=== PATIENT | female | born 1945 | race African-American/Black ===

== ENCOUNTER 2021-08-29 19:26 | Emergency (ER) | payer MEDICARE, MEDICAID ==
[~2021-08-29] VITALS: Ht 167.6 cm; Wt 96.0 kg
[~2021-08-29 19:26] MED LIST: BACL-141 MT; T3 PO
[2021-08-29] MEDS ORDERED: METHOCARBAMOL 500MG TABLET PO ONE (20:30)
[2021-08-29] MEDS ORDERED: KETOROLAC 60MG/2ML VIAL IM ONE (20:30)
[2021-08-30 00:14] LABS: CLARITY URINE CLOUDY (CLEAR); COLOR URINE YELLOW (YELLOW); KETONES URINE NEGATIVE (NEGATIVE); LEUKOCYTE ESTERASE URINE 3+ (NEGATIVE); NITRITE URINE POSITIVE (NEGATIVE); OCCULT BLOOD URINE 2+ (NEGATIVE); PROTEIN URINE TRACE (NEGATIVE); SPECIFIC GRAVITY URINE 1.013 (1.005-1.030); UROBILINOGEN URINE 0.2 E.U./dL (0.2-1.0)
[2021-08-30] MEDS ORDERED: CEPH500C2 MT (00:48)
[2021-08-30] MEDS ORDERED: METH-653 MT (00:51)
[2021-08-30 01:00] VITALS: BP 171/77
== END 2021-08-30 01:05 | disposition home or self-care (01) ==
LOC: ER 19:26
DX: N39.0 Urinary tract infection, site not specified (principal); M54.9 Dorsalgia, unspecified; F03.90 Unspecified dementia, unspecified severity, without behavioral disturbance, psychotic disturbance, mood disturbance, and anxiety; I10 Essential (primary) hypertension; Z98.51 Tubal ligation status; Z98.890 Other specified postprocedural states
CPT/HCPCS: 81003; 87077; 87086; 87186; 96372; 99283; J1885

== ENCOUNTER 2021-09-10 07:11 | Emergency (ER) | payer MEDICARE, MEDICAID ==
[~2021-09-10] VITALS: Ht 167.6 cm; Wt 91.0 kg
[~2021-09-10 07:11] MED LIST changes: +CEPH500C2 MT; +METH-653 MT
[2021-09-10] MEDS ORDERED: METHOCARBAMOL 750MG TABLET PO SCH (08:30)
[2021-09-10] MEDS ORDERED: KETOROLAC 30MG/ML VIAL IV ONE (08:30)
[2021-09-10] MEDS ORDERED: ASPIRIN 325MG EC TABLET PO ONE (08:30)
[2021-09-10 09:00] LABS: BASOPHILS % 0.6 % (0.0-2.0); EOSINOPHILS % 0.3 % (0.0-5.0); HEMOGLOBIN. 12.8 g/dL (12.0-16.0); LYMPHOCYTES % 17.6 % (20.0-50.0); MEAN CORPUSCULAR HEMOGLOBIN 28.5 pg (28.0-32.0); MEAN PLATELET VOLUME 10.4 fl (7.4-10.4); MONOCYTES % 13.2 % (2.0-8.0); NEUTROPHILS % 68.3 % (40.0-76.0); PLATELET 204 x1000/uL (130-400); RED BLOOD CELL COUNT 4.48 mill/uL (4.2-5.4); RED CELL DISTRIBUTION WIDTH 14.1 % (11.6-14.6)
[2021-09-10 09:05] LABS: CHLORIDE 105 mEq/L (98-107)
[2021-09-10] MEDS ORDERED: IBUP-2028 MT (11:41)
[2021-09-10] MEDS ORDERED: METH-653 MT (11:41)
[2021-09-10 12:10] VITALS: BP 145/86
== END 2021-09-10 12:28 | disposition home or self-care (01) ==
LOC: ER 07:20
DX: R07.89 Other chest pain (principal); M54.9 Dorsalgia, unspecified; F03.90 Unspecified dementia, unspecified severity, without behavioral disturbance, psychotic disturbance, mood disturbance, and anxiety; I10 Essential (primary) hypertension; Z98.51 Tubal ligation status; Z79.899 Other long term (current) drug therapy
CPT/HCPCS: 36415; 71045; 80053; 83880; 84484; 85025; 93005; 96374; 99285; J1885

== ENCOUNTER 2021-09-19 21:25 | Emergency (ER) | payer MEDICARE, MEDICAID ==
[~2021-09-19] VITALS: Ht 167.6 cm; Wt 80.4 kg
[~2021-09-19 21:25] MED LIST changes: +IBUP-2028 MT
[2021-09-19 23:14] LABS: BASOPHILS % 0.4 % (0.0-2.0); EOSINOPHILS % 1.6 % (0.0-5.0); HEMATOCRIT. 38.3 % (36.0-48.0); HEMOGLOBIN. 12.4 g/dL (12.0-16.0); LYMPHOCYTES % 14.8 % (20.0-50.0); MEAN CORPUSCULAR HEMOGLOBIN 28.9 pg (28.0-32.0); MEAN PLATELET VOLUME 9.7 fl (7.4-10.4); MONOCYTES % 11.6 % (2.0-8.0); NEUTROPHILS % 71.6 % (40.0-76.0); PLATELET 214 x1000/uL (130-400); RED CELL DISTRIBUTION WIDTH 14.8 % (11.6-14.6)
[2021-09-19 23:25] LABS: CHLORIDE 106 mEq/L (98-107)
[2021-09-20] MEDS ORDERED: KETOROLAC 30MG/ML VIAL IV STA (00:02)
[2021-09-20] MEDS ORDERED: KETOROLAC 30MG/ML VIAL IV NR (01:30)
[2021-09-20 02:37] LABS: CLARITY URINE CLEAR (CLEAR); COLOR URINE YELLOW (YELLOW); KETONES URINE NEGATIVE (NEGATIVE); LEUKOCYTE ESTERASE URINE 3+ (NEGATIVE); NITRITE URINE NEGATIVE (NEGATIVE); OCCULT BLOOD URINE TRACE (NEGATIVE); PROTEIN URINE NEGATIVE (NEGATIVE); SPECIFIC GRAVITY URINE 1.015 (1.005-1.030); UROBILINOGEN URINE 0.2 E.U./dL (0.2-1.0)
[2021-09-20 06:40] VITALS: BP 135/65
== END 2021-09-20 06:54 | disposition home or self-care (01) ==
LOC: ER 21:25
DX: M54.9 Dorsalgia, unspecified (principal); M19.90 Unspecified osteoarthritis, unspecified site; I10 Essential (primary) hypertension; F03.90 Unspecified dementia, unspecified severity, without behavioral disturbance, psychotic disturbance, mood disturbance, and anxiety; Z98.51 Tubal ligation status; Z98.890 Other specified postprocedural states
CPT/HCPCS: 36415; 71045; 72125; 72128; 72131; 80053; 81003; 83690; 83880; 84484; 85025; 87086; 93005; 96374; 99285; J1885

== ENCOUNTER 2021-09-25 04:05 | Emergency (ER) | payer MEDICARE, MEDICAID ==
[~2021-09-25] VITALS: Ht 167.6 cm; Wt 78.8 kg
[2021-09-25] MEDS ORDERED: FAMO-135 MT (04:10)
[2021-09-25] MEDS ORDERED: T3 PO (04:23)
[2021-09-25] MEDS ORDERED: HYDROCODONE/ACETAMINOPHEN 5/325MG TABLET PO ONE (04:30)
[2021-09-25 04:46] VITALS: BP 173/79
== END 2021-09-25 05:36 | disposition home or self-care (01) ==
LOC: ER 04:16
DX: M54.50 Low back pain, unspecified (principal); G89.29 Other chronic pain; I10 Essential (primary) hypertension; F03.90 Unspecified dementia, unspecified severity, without behavioral disturbance, psychotic disturbance, mood disturbance, and anxiety; Z98.890 Other specified postprocedural states; Z98.51 Tubal ligation status
CPT/HCPCS: 99283

== ENCOUNTER 2021-10-03 00:47 | Emergency (ER) | payer MEDICARE, MEDICAID ==
[~2021-10-03] VITALS: Ht 167.6 cm; Wt 80.0 kg
[2021-10-03] MEDS ORDERED: CYCLOBENZAPRINE 10MG TABLET PO PRN (04:00)
[2021-10-03 04:55] LABS: BASOPHILS % 0.5 % (0.0-2.0); EOSINOPHILS % 1.3 % (0.0-5.0); HEMATOCRIT. 36.3 % (36.0-48.0); HEMOGLOBIN. 11.8 g/dL (12.0-16.0); LYMPHOCYTES % 23.1 % (20.0-50.0); MEAN CORPUSCULAR HEMOGLOBIN 29.1 pg (28.0-32.0); MEAN CORPUSCULAR VOLUME 89.3 fL (81.0-99.0); MEAN PLATELET VOLUME 10.2 fl (7.4-10.4); MONOCYTES % 11.2 % (2.0-8.0); NEUTROPHILS % 63.9 % (40.0-76.0); PLATELET 190 x1000/uL (130-400); RED BLOOD CELL COUNT 4.06 mill/uL (4.2-5.4); RED CELL DISTRIBUTION WIDTH 14.6 % (11.6-14.6)
[2021-10-03 05:02] LABS: CHLORIDE 107 mEq/L (98-107)
[2021-10-03 12:32] LABS: CLARITY URINE CLEAR (CLEAR); COLOR URINE YELLOW (YELLOW); KETONES URINE NEGATIVE (NEGATIVE); LEUKOCYTE ESTERASE URINE NEGATIVE (NEGATIVE); NITRITE URINE NEGATIVE (NEGATIVE); OCCULT BLOOD URINE NEGATIVE (NEGATIVE); PROTEIN URINE NEGATIVE (NEGATIVE); SPECIFIC GRAVITY URINE 1.014 (1.005-1.030); UROBILINOGEN URINE 0.2 E.U./dL (0.2-1.0)
[2021-10-03 15:00] VITALS: BP 147/74
== END 2021-10-03 15:52 | disposition home or self-care (01) ==
LOC: ER 00:47
DX: S39.012A Strain of muscle, fascia and tendon of lower back, initial encounter (principal); I10 Essential (primary) hypertension; Z98.51 Tubal ligation status; X58.XXXA Exposure to other specified factors, initial encounter; Y93.89 Activity, other specified; Y92.89 Other specified places as the place of occurrence of the external cause; Y99.8 Other external cause status
CPT/HCPCS: 36415; 72131; 80053; 81003; 85025; 99284

== ENCOUNTER 2021-11-25 10:00 | Emergency (ER) | payer MEDICARE, MEDICAID ==
[~2021-11-25] VITALS: Ht 167.6 cm; Wt 66.0 kg
[2021-11-25] MEDS ORDERED: ACETAMINOPHEN WITH CODEINE 300/30MG TABLET PO STA (11:25)
[2021-11-25] MEDS ORDERED: IBUPROFEN 600MG TABLET PO STA (11:25)
[2021-11-25 12:56] LABS: CLARITY URINE CLOUDY (CLEAR); COLOR URINE YELLOW (YELLOW); KETONES URINE NEGATIVE (NEGATIVE); LEUKOCYTE ESTERASE URINE 2+ (NEGATIVE); NITRITE URINE NEGATIVE (NEGATIVE); OCCULT BLOOD URINE NEGATIVE (NEGATIVE); PROTEIN URINE NEGATIVE (NEGATIVE); SPECIFIC GRAVITY URINE 1.022 (1.005-1.030); UROBILINOGEN URINE 0.2 E.U./dL (0.2-1.0)
[2021-11-25] MEDS ORDERED: NITR-87 PO (13:11)
[2021-11-25] MEDS ORDERED: T3 PO (13:11)
[2021-11-25] MEDS ORDERED: DICL100G31 TP (13:11)
[2021-11-25 13:36] VITALS: BP 126/78
== END 2021-11-25 13:38 | disposition home or self-care (01) ==
LOC: ER 10:12
DX: M54.9 Dorsalgia, unspecified (principal); N39.0 Urinary tract infection, site not specified; M19.90 Unspecified osteoarthritis, unspecified site; E78.00 Pure hypercholesterolemia, unspecified; I11.9 Hypertensive heart disease without heart failure; F17.210 Nicotine dependence, cigarettes, uncomplicated; Z88.8 Allergy status to other drugs, medicaments and biological substances; Z98.62 Peripheral vascular angioplasty status; Z90.710 Acquired absence of both cervix and uterus; Z98.890 Other specified postprocedural states
CPT/HCPCS: 81003; 99283

== ENCOUNTER 2021-12-16 14:28 | Inpatient (IN) | payer MEDICARE, MEDICAID ==
[~2021-12-16] VITALS: Ht 167.6 cm; Wt 86.2 kg
[~2021-12-16 14:28] MED LIST changes: +DICL100G31 TP; +NITR-87 PO
[2021-12-16] MEDS ORDERED: ASPIRIN 81MG TABLET PO ONE (14:45)
[2021-12-16] MEDS ORDERED: ACETAMINOPHEN 325MG TABLET PO ONE (14:45)
[2021-12-16 16:03] LABS: BASOPHILS % 0.1 % (0.0-2.0); EOSINOPHILS % 0.2 % (0.0-5.0); HEMATOCRIT. 38.5 % (36.0-48.0); HEMOGLOBIN. 12.4 g/dL (12.0-16.0); LYMPHOCYTES % 7.3 % (20.0-50.0); MEAN CORPUSCULAR VOLUME 90.3 fL (81.0-99.0); MEAN PLATELET VOLUME 9.8 fl (7.4-10.4); MONOCYTES % 8.3 % (2.0-8.0); NEUTROPHILS % 84.1 % (40.0-76.0); PLATELET 204 x1000/uL (130-400); RED BLOOD CELL COUNT 4.27 mill/uL (4.2-5.4); RED CELL DISTRIBUTION WIDTH 14.6 % (11.6-14.6)
[2021-12-16 16:11] LABS: CHLORIDE 104 mEq/L (98-107)
[2021-12-16 16:12] LABS: PROTHROMBIN TIME 10.9 sec (9.6-11.0)
[2021-12-16] MEDS ORDERED: MORPHINE SULFATE 4 MG/ML CPJ (NOT FOR IM USE) IV ONE (17:00)
[2021-12-16] MEDS ORDERED: HYDRALAZINE 20MG/ML VIAL IV ONE (17:15)
[2021-12-16] MEDS ORDERED: DEXTROSE 50% WATER 50ML SYRINGE IV PRN (20:45)
[2021-12-16 20:55] VITALS: BP 173/72
[2021-12-16] MEDS: INSULIN LISPRO 100 UNITS/ML SUBCUT SCH (21:00)
[2021-12-16] MEDS ORDERED: ENOXAPARIN 80MG/0.8ML SYR SUBCUT SCH (21:00)
[2021-12-16] MEDS: BLOOD SUGAR DIAGNOSTIC STRIP TEST SCH (21:48)
[2021-12-16] MEDS: METOPROLOL TARTRATE 25MG TABLET PO SCH (21:51)
[2021-12-16] MEDS ORDERED: HYDRALAZINE HCL 25MG TABLET PO SCH (22:00)
[2021-12-17] VITALS (8 sets, daily range): BP systolic 105–166; BP diastolic 45–78
[2021-12-17] MEDS ORDERED: AMLODIPINE 10MG TABLET PO NR (01:00)
[2021-12-17 06:13] LABS: CHLORIDE 104 mEq/L (98-107)
[2021-12-17 06:27] LABS: BASOPHILS % 0.2 % (0.0-2.0); EOSINOPHILS % 0.3 % (0.0-5.0); HEMATOCRIT. 35.7 % (36.0-48.0); HEMOGLOBIN. 11.8 g/dL (12.0-16.0); MEAN CORPUSCULAR HEMOGLOBIN 29.1 pg (28.0-32.0); MEAN CORPUSCULAR VOLUME 88.3 fL (81.0-99.0); MEAN PLATELET VOLUME 10.4 fl (7.4-10.4); MONOCYTES % 13.9 % (2.0-8.0); NEUTROPHILS % 68.6 % (40.0-76.0); PLATELET 195 x1000/uL (130-400); RED BLOOD CELL COUNT 4.04 mill/uL (4.2-5.4); RED CELL DISTRIBUTION WIDTH 14.3 % (11.6-14.6)
[2021-12-17] MEDS: BLOOD SUGAR DIAGNOSTIC STRIP TEST SCH ×4 (06:28→20:34)
[2021-12-17 06:39] LABS: CREATINE KINASE 1263 IU/L (26-192); CREATINE KINASE MB FRACTION 131.8 ng/mL (0.5-3.6); HDL CHOLESTEROL 70 mg/dL (40-59); LDL CHOLESTEROL 102 mg/dL (5-100)
[2021-12-17] MEDS ORDERED: HEPARIN 5000 UNITS/ML VIAL IV SCH (07:15)
[2021-12-17] MEDS ORDERED: HEPARIN 5000 UNITS/ML VIAL IV PRN ×2 (07:15)
[2021-12-17] MEDS ORDERED: HEPARIN 25,000 UNITS PREMIX 250 ML IV PRN (07:15)
[2021-12-17] MEDS: INSULIN LISPRO 100 UNITS/ML SUBCUT SCH ×4 (07:50→20:38)
[2021-12-17] MEDS ORDERED: BENAZEPRIL 5MG TABLET PO SCH (09:00)
[2021-12-17] MEDS: METOPROLOL TARTRATE 25MG TABLET PO SCH ×2 (10:01→20:33)
[2021-12-17] MEDS: AMLODIPINE 10MG TABLET PO SCH (10:02)
[2021-12-17] MEDS: GABAPENTIN 300MG CAPSULE PO SCH ×2 (10:02→17:55)
[2021-12-17 10:53] LABS: INR 1.1; PARTIAL THROMBOPLASTIN TIME 32.2 sec (23.4-31.0); PROTHROMBIN TIME 11.3 sec (9.6-11.0)
[2021-12-17] MEDS ORDERED: HEPARIN 1000 UNITS/ML 10ML ONE (11:08)
[2021-12-17] MEDS ORDERED: FENTANYL CITRATE/PF 50MCG/ML 2ML VIAL ONE (11:08)
[2021-12-17] MEDS ORDERED: MIDAZOLAM HCL 2 MG/2 ML VIAL ONE (11:08)
[2021-12-17] MEDS ORDERED: LIDOCAINE HCL 1% 10 MG/ML 10ML VIAL ONE (11:09)
[2021-12-17] MEDS ORDERED: IODIXANOL 320MG/ML 100 ML BOTTLE IV ONE (11:09)
[2021-12-17] MEDS ORDERED: HEPARIN BOLUS PRN aPTT <30 IV (11:15)
[2021-12-17] MEDS ORDERED: HEPARIN BOLUS PRN aPTT 30-44 IV (11:15)
[2021-12-17] MEDS ORDERED: HEPARIN 25,000 UNITS PREMIX 250 ML IV SCH (11:15)
[2021-12-17] MEDS ORDERED: CLOPIDOGREL 75MG TABLET ONE (12:42)
[2021-12-17] MEDS ORDERED: ASPIRIN 325MG TABLET ONE (12:42)
[2021-12-17] MEDS ORDERED: ATROPINE SULFATE 1MG/10ML SYR IV PRN (12:45)
[2021-12-17] MEDS ORDERED: LORAZEPAM 0.5MG TABLET PO NR (19:45)
[2021-12-17] MEDS ORDERED: ATORVASTATIN CALCIUM 40MG TABLET PO SCH (21:00)
[2021-12-17] MEDS ORDERED: ATORVASTATIN CALCIUM 20MG TABLET PO SCH (21:00)
[2021-12-18] VITALS: BP 137/81
[2021-12-18 02:00] VITALS: BP 136/59
[2021-12-18 04:00] VITALS: BP 119/49
[2021-12-18] MEDS: BLOOD SUGAR DIAGNOSTIC STRIP TEST SCH (07:50)
[2021-12-18 08:00] VITALS: BP 118/59
[2021-12-18] MEDS: INSULIN LISPRO 100 UNITS/ML SUBCUT SCH (08:00)
[2021-12-18] MEDS: AMLODIPINE 10MG TABLET PO SCH (09:00)
[2021-12-18] MEDS ORDERED: CLOPIDOGREL 75MG TABLET PO SCH (09:00)
[2021-12-18] MEDS ORDERED: ASPIRIN 81MG TABLET PO SCH (09:00)
[2021-12-18] MEDS: METOPROLOL TARTRATE 25MG TABLET PO SCH (09:00)
[2021-12-18] MEDS: GABAPENTIN 300MG CAPSULE PO SCH (09:23)
[2021-12-18] MEDS ORDERED: ASPI-1160 PO (11:37)
[2021-12-18] MEDS ORDERED: GABA-532 PO (11:37)
[2021-12-18] MEDS ORDERED: CLOP75TA15 PO (11:37)
[2021-12-18] MEDS ORDERED: LIP40 PO (11:37)
[2021-12-18] MEDS ORDERED: METO25TA6 PO (11:37)
[2021-12-18] MEDS ORDERED: AMLO10TA80 PO (11:37)
[2021-12-18 12:00] VITALS: BP 123/61
[2021-12-18 12:39] VITALS: BP 123/61
== END 2021-12-18 13:30 | disposition home or self-care (01) | DRG 247 ==
LOC: ER 14:52 → 6WST 17:31 → ENRESERV 19:28 → 5EST 12-17 13:10
PROVIDERS: ADMIT Family Medicine; ATTEND Family Medicine
PROC: 027034Z Dilation of Coronary Artery, One Artery with Drug-eluting Intraluminal Device, Percutaneous Approach (ICD-10-PCS; principal; 2021-12-17)
PROC: 4A023N7 Measurement of Cardiac Sampling and Pressure, Left Heart, Percutaneous Approach (ICD-10-PCS; 2021-12-17)
PROC: B2111ZZ Fluoroscopy of Multiple Coronary Arteries using Low Osmolar Contrast (ICD-10-PCS; 2021-12-17)
PROC: B2151ZZ Fluoroscopy of Left Heart using Low Osmolar Contrast (ICD-10-PCS; 2021-12-17)
DX: I21.4 Non-ST elevation (NSTEMI) myocardial infarction (principal); E11.9 Type 2 diabetes mellitus without complications; I25.110 Atherosclerotic heart disease of native coronary artery with unstable angina pectoris; Z20.822 Contact with and (suspected) exposure to COVID-19; I11.9 Hypertensive heart disease without heart failure; E78.5 Hyperlipidemia, unspecified; I24.9 Acute ischemic heart disease, unspecified; G89.29 Other chronic pain; M54.9 Dorsalgia, unspecified; I25.2 Old myocardial infarction; F03.90 Unspecified dementia, unspecified severity, without behavioral disturbance, psychotic disturbance, mood disturbance, and anxiety; Z86.73 Personal history of transient ischemic attack (TIA), and cerebral infarction without residual deficits; Z98.51 Tubal ligation status; Z91.09 Other allergy status, other than to drugs and biological substances; Z82.49 Family history of ischemic heart disease and other diseases of the circulatory system; Z83.3 Family history of diabetes mellitus
CPT/HCPCS: 36415; 71045; 80053; 80061; 82550; 82553; 82962; 83036; 83880; 84484; 85025; 85347; 87426; 92928; 93005; 93306; 93458; 99285; C1725; C1769; C1874; C1887; C1893; J0360; J1644; J1650; J2250; J2270; J3010; J3490; Q9967

== ENCOUNTER 2021-12-23 15:58 | Emergency (ER) | payer MEDICARE, MEDICAID ==
[~2021-12-23] VITALS: Ht 167.6 cm; Wt 85.0 kg
[~2021-12-23 15:58] MED LIST changes: +AMLO10TA80 PO; +ASPI-1160 PO; +CLOP75TA15 PO; +GABA-532 PO; +LIP40 PO; +METO25TA6 PO
[2021-12-23 16:14] VITALS: BP 166/56
== END 2021-12-23 18:59 | disposition left against medical advice (07) ==
LOC: ER 15:58
DX: Z53.21 Procedure and treatment not carried out due to patient leaving prior to being seen by health care provider (principal); I10 Essential (primary) hypertension; F03.90 Unspecified dementia, unspecified severity, without behavioral disturbance, psychotic disturbance, mood disturbance, and anxiety; I25.2 Old myocardial infarction; Z86.73 Personal history of transient ischemic attack (TIA), and cerebral infarction without residual deficits; Z98.51 Tubal ligation status; Z98.62 Peripheral vascular angioplasty status

== ENCOUNTER 2021-12-27 09:45 | Inpatient (IN) | payer MEDICARE, MEDICAID ==
[~2021-12-27] VITALS: Ht 165.1 cm; Wt 86.2 kg
[2021-12-27 10:36] LABS: HEMATOCRIT. 35.5 % (36.0-48.0); HEMOGLOBIN. 11.6 g/dL (12.0-16.0); MEAN CORPUSCULAR VOLUME 88.7 fL (81.0-99.0); PLATELET 221 x1000/uL (130-400); RED BLOOD CELL COUNT 4.01 mill/uL (4.2-5.4); RED CELL DISTRIBUTION WIDTH 14.3 % (11.6-14.6)
[2021-12-27 10:44] LABS: CHLORIDE 107 mEq/L (98-107)
[2021-12-27 10:51] LABS: ETHANOL BLOOD < 10 mg/dL
[2021-12-27 10:54] LABS: CLARITY URINE CLEAR (CLEAR); COLOR URINE YELLOW (YELLOW); KETONES URINE NEGATIVE (NEGATIVE); LEUKOCYTE ESTERASE URINE 3+ (NEGATIVE); NITRITE URINE NEGATIVE (NEGATIVE); OCCULT BLOOD URINE NEGATIVE (NEGATIVE); PROTEIN URINE NEGATIVE (NEGATIVE); SPECIFIC GRAVITY URINE 1.013 (1.005-1.030); UROBILINOGEN URINE 0.2 E.U./dL (0.2-1.0)
[2021-12-27 11:07] LABS: PLATELET ESTIMATE NORMAL
[2021-12-27] MEDS ORDERED: ASPIRIN 325MG EC TABLET PO ONE (11:15)
[2021-12-27] MEDS ORDERED: CLOPIDOGREL 75MG TABLET PO ONE (11:15)
[2021-12-27 11:18] LABS: *AMPHETAMINES SCREEN URINE NEGATIVE (NEGATIVE); *BARBITURATES SCREEN URINE NEGATIVE (NEGATIVE); *BENZODIAZEPINES SCREEN URINE NEGATIVE (NEGATIVE); *COCAINE SCREEN URINE NEGATIVE (NEGATIVE); CANNABINOID URINE SCREEN NEGATIVE (NEGATIVE); METHADONE URINE SCREEN NEGATIVE (NEGATIVE); OPIATES URINE SCREEN NEGATIVE (NEGATIVE); PHENCYCLIDINE URINE SCREEN NEGATIVE (NEGATIVE)
[2021-12-27] MEDS ORDERED: IOHEXOL-350 100 ML BOTTLE ONE (11:35)
[2021-12-27] MEDS ORDERED: LOSA25TA26 PO (11:52)
[2021-12-27] MEDS ORDERED: IPRATROPIUM/ALBUTEROL 0.5-3(2.5)MG/3ML NEB HHN PRN (13:00)
[2021-12-27] MEDS ORDERED: ONDANSETRON HCL 4MG/2ML INJ IV PRN (13:00)
[2021-12-27] MEDS ORDERED: CLONIDINE 0.1MG TABLET PO PRN (13:00)
[2021-12-27] MEDS ORDERED: DIPHENHYDRAMINE 50MG/ML VIAL IV PRN (13:00)
[2021-12-27] MEDS ORDERED: CEFTRIAXONE 1 G PREMIX 50 ML IV NR (13:00)
[2021-12-27 20:00] VITALS: BP 171/65
[2021-12-27 21:00] VITALS: BP 171/65
[2021-12-28] VITALS: BP 134/71
[2021-12-28] MEDS: ASPIRIN 81MG EC TABLET PO SCH (09:49)
[2021-12-28] MEDS: CEFTRIAXONE 1,000 MG in DEXTROSE 5% WATER 50 ML IV SCH (10:32)
[2021-12-28 12:00] VITALS: BP 137/76
[2021-12-28] MEDS: CLOPIDOGREL 75MG TABLET PO SCH (15:33)
[2021-12-28] MEDS: ENOXAPARIN 40MG/0.4ML SYR SUBCUT SCH (15:33)
[2021-12-28 16:00] VITALS: BP 125/65
[2021-12-28 20:00] VITALS: BP 138/62
[2021-12-29] VITALS: BP 127/79
[2021-12-29 04:00] VITALS: BP 133/66
[2021-12-29 06:48] LABS: HEMATOCRIT. 33.8 % (36.0-48.0); HEMOGLOBIN. 11.3 g/dL (12.0-16.0); MEAN CORPUSCULAR HEMOGLOBIN 29.1 pg (28.0-32.0); MEAN CORPUSCULAR VOLUME 87.1 fL (81.0-99.0); MEAN PLATELET VOLUME 9.8 fl (7.4-10.4); PLATELET 238 x1000/uL (130-400); RED BLOOD CELL COUNT 3.88 mill/uL (4.2-5.4)
[2021-12-29 07:00] LABS: CHLORIDE 106 mEq/L (98-107)
[2021-12-29] MEDS: ASPIRIN 81MG EC TABLET PO SCH (07:59)
[2021-12-29] MEDS: CLOPIDOGREL 75MG TABLET PO SCH (07:59)
[2021-12-29] MEDS: CEFTRIAXONE 1,000 MG in DEXTROSE 5% WATER 50 ML IV SCH (07:59)
[2021-12-29 08:00] VITALS: BP 143/66
[2021-12-29] MEDS: ACETAMINOPHEN 325MG TABLET PO PRN (09:48)
[2021-12-29 12:00] VITALS: BP 145/92
[2021-12-29] MEDS: ENOXAPARIN 40MG/0.4ML SYR SUBCUT SCH (15:40)
[2021-12-29 16:00] VITALS: BP 147/79
[2021-12-29 20:00] VITALS: BP 140/64
[2021-12-30] VITALS: BP 127/83
[2021-12-30 03:38] LABS: PLATELET ESTIMATE NORMAL
[2021-12-30 04:00] VITALS: BP 136/77
[2021-12-30] MEDS: ACETAMINOPHEN 325MG TABLET PO PRN (04:57)
[2021-12-30] MEDS ORDERED: NALOXONE HCL 0.4MG/ML VIAL IV PRN (05:15)
[2021-12-30 08:00] VITALS: BP 139/61
[2021-12-30] MEDS: CEFTRIAXONE 1,000 MG in DEXTROSE 5% WATER 50 ML IV SCH (08:48)
[2021-12-30] MEDS: CLOPIDOGREL 75MG TABLET PO SCH (08:48)
[2021-12-30] MEDS: ASPIRIN 81MG EC TABLET PO SCH (08:48)
[2021-12-30] MEDS: HYDROCODONE/ACETAMINOPHEN 5/325MG TABLET PO PRN (09:10)
[2021-12-30 12:00] VITALS: BP 123/59
[2021-12-30] MEDS: ENOXAPARIN 40MG/0.4ML SYR SUBCUT SCH (15:05)
[2021-12-30 16:00] VITALS: BP 121/61
[2021-12-30 20:00] VITALS: BP 152/72
[2021-12-31] VITALS: BP 139/54
[2021-12-31 04:00] VITALS: BP 156/90
[2021-12-31] MEDS: HYDROCODONE/ACETAMINOPHEN 5/325MG TABLET PO PRN ×2 (04:12→09:03)
[2021-12-31 08:00] VITALS: BP 148/58
[2021-12-31 08:39] LABS: BASOPHILS % 0.5 % (0.0-2.0); EOSINOPHILS % 2.5 % (0.0-5.0); HEMATOCRIT. 36.2 % (36.0-48.0); HEMOGLOBIN. 11.7 g/dL (12.0-16.0); LYMPHOCYTES % 26.1 % (20.0-50.0); MEAN CORPUSCULAR HEMOGLOBIN 28.8 pg (28.0-32.0); MEAN CORPUSCULAR VOLUME 89.5 fL (81.0-99.0); MEAN PLATELET VOLUME 10.4 fl (7.4-10.4); MONOCYTES % 14.3 % (2.0-8.0); NEUTROPHILS % 56.6 % (40.0-76.0); PLATELET 203 x1000/uL (130-400); RED BLOOD CELL COUNT 4.05 mill/uL (4.2-5.4); RED CELL DISTRIBUTION WIDTH 14.2 % (11.6-14.6)
[2021-12-31 08:50] LABS: CHLORIDE 103 mEq/L (98-107)
[2021-12-31] MEDS: CEFTRIAXONE 1,000 MG in DEXTROSE 5% WATER 50 ML IV SCH (09:00)
[2021-12-31] MEDS: ASPIRIN 81MG EC TABLET PO SCH (09:04)
[2021-12-31] MEDS: CLOPIDOGREL 75MG TABLET PO SCH (09:04)
[2021-12-31 12:00] VITALS: BP 128/73
[2021-12-31] MEDS: ENOXAPARIN 40MG/0.4ML SYR SUBCUT SCH (14:08)
[2021-12-31 15:46] VITALS: BP 148/58
[2021-12-31 16:00] VITALS: BP 133/68
== END 2021-12-31 16:35 | disposition home or self-care, planned readmission (81) | DRG 65 ==
LOC: ER 09:55 → ENRESERV 17:36 → ER 19:43 → 7WST 22:34
PROVIDERS: ADMIT Internal Medicine; ATTEND Internal Medicine
DX: I63.9 Cerebral infarction, unspecified (principal); N39.0 Urinary tract infection, site not specified; R47.01 Aphasia; I65.23 Occlusion and stenosis of bilateral carotid arteries; I11.9 Hypertensive heart disease without heart failure; D72.825 Bandemia; Z86.73 Personal history of transient ischemic attack (TIA), and cerebral infarction without residual deficits; Z95.5 Presence of coronary angioplasty implant and graft; Z87.440 Personal history of urinary (tract) infections; F03.90 Unspecified dementia, unspecified severity, without behavioral disturbance, psychotic disturbance, mood disturbance, and anxiety
CPT/HCPCS: 36415; 70496; 70498; 70547; 70551; 71045; 80048; 80053; 80061; 80305; 80320; 81003; 83036; 84145; 85025; 92610; 93005; 97110; 97162; 97166; 97530; 97535; 99291; J0696; J1650; J7060; Q9967; G0480

== ENCOUNTER 2022-03-16 16:21 | Emergency (ER) | payer MEDICARE, MEDICAID ==
[~2022-03-16] VITALS: Ht 172.7 cm; Wt 101.0 kg
[~2022-03-16 16:21] MED LIST changes: -CEPH500C2 MT; -IBUP-2028 MT; +LOSA25TA26 PO; -NITR-87 PO
[2022-03-16] MEDS ORDERED: METHOCARBAMOL 500MG TABLET PO ONE (17:45)
[2022-03-16] MEDS ORDERED: GABAPENTIN 300MG CAPSULE PO ONE (17:45)
[2022-03-16] MEDS ORDERED: ACETAMINOPHEN 325MG TABLET PO ONE (17:45)
[2022-03-16] MEDS ORDERED: KETOROLAC 15MG/ML VIAL IM ONE (17:45)
[2022-03-16 18:08] VITALS: BP 183/72
[2022-03-16] MEDS ORDERED: METH-653 MT (19:33)
== END 2022-03-16 20:04 | disposition home or self-care (01) ==
LOC: ER 16:21
DX: M54.50 Low back pain, unspecified (principal); G89.29 Other chronic pain; I10 Essential (primary) hypertension; I25.2 Old myocardial infarction; Z86.73 Personal history of transient ischemic attack (TIA), and cerebral infarction without residual deficits; Z98.51 Tubal ligation status; Z79.899 Other long term (current) drug therapy
CPT/HCPCS: 96372; 99284; J1885

== ENCOUNTER 2023-01-07 12:35 | Emergency (ER) | payer MEDICARE, MEDICAID ==
[~2023-01-07] VITALS: Ht 167.6 cm; Wt 68.0 kg
[2023-01-07 13:05] VITALS: BP 125/64; PULSE 67; RESP 16; TEMP 98.6; O2SAT 98
[2023-01-07 13:22] LABS: BASOPHILS % 0.3 % (0.0-2.0); DIFFERENTIAL COMMENT 0; EOSINOPHILS % 0.8 % (0.0-5.0); HEMATOCRIT. 36.4 % (36.0-48.0); HEMOGLOBIN. 11.8 g/dL (12.0-16.0); LYMPHOCYTES % 15.7 % (20.0-50.0); MEAN CORPUSCULAR HEMOGLOBIN 28.6 pg (28.0-32.0); MEAN CORPUSCULAR HGB CONC 32.5 g/dL (31.0-37.0); MEAN CORPUSCULAR VOLUME 88.1 fL (81.0-99.0); MEAN PLATELET VOLUME 10.3 fl (7.4-10.4); MONOCYTES % 10.8 % (2.0-8.0); NEUTROPHILS % 72.4 % (40.0-76.0); PLATELET 243 x1000/uL (130-400); RED BLOOD CELL COUNT 4.13 mill/uL (4.2-5.4); RED CELL DISTRIBUTION WIDTH 13.9 % (11.6-14.6); WHITE BLOOD COUNT 7.9 x1000/uL (4.5-11.0)
[2023-01-07 13:31] LABS: CHLORIDE 109 mEq/L (98-107); INDEX HEMOLYSI 1 (1-3); INDEX ICTERIC 1 (1-4); INDEX LIPEMIC 1 (1-3); POTASSIUM 3.5 mEq/L (3.5-5.1); SODIUM 139 mEq/L (136-145)
[2023-01-07 13:40] LABS: ALANINE AMINOTRANSFERASE 9 IU/L (13-61); ALBUMIN 3.5 g/dL (3.4-5.0); ASPARTATE AMINOTRANSFERASE 17 IU/L (15-37); BILIRUBIN TOTAL 0.5 mg/dL (0.1-1.0); CALCIUM 9.1 mg/dL (8.5-10.1); CARBON DIOXIDE 26 mEq/L (21-32); CREATININE 1.3 mg/dL (0.6-1.3); GLUCOSE 179 mg/dL (70-105); PROTEIN TOTAL 8.1 g/dL (6.0-8.3); UREA NITROGEN BLOOD 23 mg/dL (7-21)
[2023-01-07] MEDS ORDERED: BISA-81 MT (16:57)
[2023-01-07] MEDS ORDERED: AMOX1TAB16 MT (16:57)
[2023-01-07] MEDS ORDERED: POLY17PO3 MT (16:57)
[2023-01-07] MEDS ORDERED: IOHEXOL-300 100 ML BOTTLE ONE (21:43)
== END 2023-01-07 17:52 | disposition home or self-care (01) ==
LOC: ER 12:35
DX: K57.92 Diverticulitis of intestine, part unspecified, without perforation or abscess without bleeding (principal); K56.41 Fecal impaction; I10 Essential (primary) hypertension; I25.2 Old myocardial infarction; Z88.8 Allergy status to other drugs, medicaments and biological substances; Z98.51 Tubal ligation status
CPT/HCPCS: 99285; 74177; 80053; 83605; 83690; 85025; 36415; Q9967